=== PATIENT | male | born 1940 | race African-American/Black ===

== ENCOUNTER 2021-03-07 04:36 | Emergency (ER) | payer MEDICARE ==
[~2021-03-07] VITALS: Ht 175.3 cm; Wt 77.1 kg
[2021-03-07] MEDS ORDERED: ELIQUIS5 MG PO (04:59)
[2021-03-07] MEDS ORDERED: CYCLOBENZAPRINE10 MG PO (06:52)
[2021-03-07] MEDS ORDERED: ULTRAM50 MG PO (06:52)
== END 2021-03-07 07:00 | disposition home or self-care (01) ==
LOC: ED 04:36
DX: M54.5 Low back pain (principal); I10 Essential (primary) hypertension; Z88.2 Allergy status to sulfonamides; Z79.899 Other long term (current) drug therapy
CPT/HCPCS: 74176; 99283-25